=== PATIENT | female | born 1980 | race Caucasian/White ===

== ENCOUNTER 2024-07-31 05:34 | Emergency (ER) | payer SELFPAY ==
[~2024-07-31] VITALS: Ht 162.5 cm; Wt 78.7 kg
[2024-07-31] MEDS ORDERED: BUPRENORPHINE HCL/NALOXONE 2 MG/0.5 MG SL TAB SL ONE ×2 (05:40→06:10)
[2024-07-31] MEDS ORDERED: Ondansetron Hydrochloride 4 MG TAB SL ONE (05:40)
[2024-07-31 06:05] LABS: BASO % 0.4 % (0.0-1.0); EOS % 0.8 % (1.0-4.0); HEMATOCRIT 41.3 % (37.0-47.0); MEAN CELL VOLUME 75.4 fl (81.0-99.0); MEAN CORPUSCULAR HGB 24.5 pg (27.0-31.0); MEAN CORPUSCULAR HGB CONC 32.4 g/dl (33.0-37.0); MEAN PLATELET VOLUME 9.3 fl (9.6-12.3); MONO # 0.5 10*3/uL (0.1-1.0); MONO % 9.6 % (3.0-9.0); NEUT # 3.2 10*3/uL (2.3-7.9); NEUT % 62.1 % (47.0-73.0); PLATELET COUNT AUTOMATED 186 10*3/uL (130-400); RED BLOOD COUNT 5.48 10*6/uL (4.10-5.10); RED CELL DISTRI WIDTH 16.6 % (0-14.5); WHITE BLOOD COUNT 5.1 10*3/uL (4.8-10.8)
[2024-07-31 06:22] LABS: ALKALINE PHOSPHATASE 70 U/L (46-116); BUN 14 mg/dl (9-23); CHLORIDE 105 mmol/L (98-107); POTASSIUM 3.7 mmol/L (3.4-5.1); SGPT/ALT 16 U/L (5-49); TOTAL PROTEIN 7.6 gm/dL (6.0-8.0)
[2024-07-31] MEDS ORDERED: Ondansetron Hydrochloride 4 MG/2 ML VIAL IV ONE (06:40)
[2024-07-31] MEDS ORDERED: Metoclopramide Hydrochloride 10 MG/2 ML VIAL IV ONE (07:30)
[2024-07-31] MEDS ORDERED: diphenhydrAMINE hydrochloride 50 MG/ML VIAL IV ONE (07:30)
[2024-07-31] MEDS ORDERED: BUPRENORPHINE HYDROCHLORIDE IV ONE (08:25)
[2024-07-31] MEDS ORDERED: MORPHINE Sulfate 2 MG/ML SYR IV ONE (11:15)
== END 2024-07-31 11:24 | disposition home or self-care (01) ==
LOC: ED 05:34
PROVIDERS: Internal Medicine
DX: F11.23 Opioid dependence with withdrawal (principal); R11.2 Nausea with vomiting, unspecified; R25.1 Tremor, unspecified; R10.9 Unspecified abdominal pain

== ENCOUNTER 2024-10-24 22:37 | Emergency (ER) | payer MEDICAID ==
[~2024-10-24] VITALS: Ht 162.5 cm; Wt 76.4 kg
[2024-10-24] MEDS ORDERED: BUPRENORPHINE HCL/NALOXONE 8 MG-2 MG SL TABLET SL ONE (22:40)
== END 2024-10-25 01:01 | disposition home or self-care (01) ==
LOC: ED 22:37
DX: Z51.81 Encounter for therapeutic drug level monitoring (principal)

== ENCOUNTER 2024-10-29 10:07 | Emergency (ER) | payer MEDICAID ==
[~2024-10-29] VITALS: Ht 162.5 cm; Wt 70.3 kg
[2024-10-29] MEDS ORDERED: BUPRENORPHINE HCL/NALOXONE 8 MG-2 MG SL TABLET SL ONE (12:55)
[2024-10-29] MEDS ORDERED: SUBOXONE 8 MG-1 EACH BC (12:59)
== END 2024-10-29 13:11 | disposition home or self-care (01) ==
LOC: ED 10:07
DX: F11.23 Opioid dependence with withdrawal (principal)

== ENCOUNTER 2024-11-07 14:31 | Emergency (ER) | payer MEDICAID ==
[~2024-11-07] VITALS: Ht 172.7 cm; Wt 76.2 kg
[~2024-11-07 14:31] MED LIST: SUBOXONE 8 MG-1 EACH BC
[2024-11-07] MEDS ORDERED: BUPRENORPHINE HCL/NALOXONE 8 MG-2 MG SL TABLET SL ONE (15:30)
== END 2024-11-07 15:33 | disposition home or self-care (01) ==
LOC: ED 14:31
DX: F11.23 Opioid dependence with withdrawal (principal); R25.1 Tremor, unspecified; Z79.899 Other long term (current) drug therapy; Z76.0 Encounter for issue of repeat prescription

== ENCOUNTER 2024-11-14 14:42 | Emergency (ER) | payer MEDICAID ==
[2024-11-14] MEDS ORDERED: BUPRENORPHINE HCL/NALOXONE 8 MG-2 MG SL TABLET SL ONE (15:10)
== END 2024-11-14 15:27 | disposition home or self-care (01) ==
LOC: ED 14:42
DX: F11.23 Opioid dependence with withdrawal (principal)

== ENCOUNTER → 2024-11-15 | Outpatient (CLI) | payer MEDICAID | END | disposition home or self-care (01) | LOC: RESCLI 10:54 | PROVIDERS: ATTEND Student in an Organized Health Care Education/Training Program | DX: F11.23 Opioid dependence with withdrawal (principal); F31.9 Bipolar disorder, unspecified; M79.7 Fibromyalgia; M62.830 Muscle spasm of back; F41.9 Anxiety disorder, unspecified; Z79.899 Other long term (current) drug therapy; Z98.890 Other specified postprocedural states ==

== ENCOUNTER 2024-12-18 15:14 | Emergency (ER) | payer MEDICAID ==
[2024-12-18] MEDS ORDERED: Metoclopramide Hydrochloride 10 MG/2 ML VIAL IV ONE (15:35)
[2024-12-18] MEDS ORDERED: diphenhydrAMINE hydrochloride 50 MG/ML VIAL IV ONE (15:35)
[2024-12-18] MEDS ORDERED: SODIUM CHLORIDE 0.9% 1,000 ML IV ONE (15:35)
[2024-12-18 15:47] LABS: BASO # 0.0 10*3/uL (0.0-0.1); BASO % 0.5 % (0.0-1.0); EOS # 0.1 10*3/uL (0.0-0.4); EOS % 2.1 % (1.0-4.0); MEAN CELL VOLUME 80.8 fl (81.0-99.0); MEAN CORPUSCULAR HGB 25.9 pg (27.0-31.0); MEAN PLATELET VOLUME 9.5 fl (9.6-12.3); MONO # 0.4 10*3/uL (0.1-1.0); MONO % 7.7 % (3.0-9.0); NEUT # 2.6 10*3/uL (2.3-7.9); NEUT % 45.4 % (47.0-73.0); NUCLEATED RED BLOOD CELL 0.0 % (0.0-0.0); NUCLEATED RED BLOOD CELL 0.0 10*3/uL (0.0-0.0); PLATELET COUNT AUTOMATED 158 10*3/uL (130-400); RED CELL DISTRI WIDTH 16.0 % (0-14.5)
[2024-12-18 16:01] LABS: BUN 15 mg/dl (9-23)
[2024-12-18] MEDS ORDERED: IBU800 M2 PO (16:51)
[2024-12-18] MEDS ORDERED: REGLAN10 M1 PO (16:51)
== END 2024-12-18 16:56 | disposition home or self-care (01) ==
LOC: ED 15:14
PROVIDERS: Emergency Medicine
DX: R51.9 Headache, unspecified (principal); R20.8 Other disturbances of skin sensation; R11.0 Nausea

== ENCOUNTER → 2025-01-11 | Outpatient (CLI) | payer MEDICAID ==
[~2025-01-11] MED LIST changes: +IBU800 M2 PO; +REGLAN10 M1 PO
== END | disposition home or self-care (01) ==
LOC: RESCLI 13:54
PROVIDERS: ATTEND Student in an Organized Health Care Education/Training Program
DX: M62.830 Muscle spasm of back (principal); F31.9 Bipolar disorder, unspecified; F41.9 Anxiety disorder, unspecified; M79.7 Fibromyalgia; Z79.891 Long term (current) use of opiate analgesic; Z79.899 Other long term (current) drug therapy